=== PATIENT | female | born 1980 | race American Indian/Alaskan Native ===

== ENCOUNTER 2017-06-03 18:30 | Emergency (ER) | payer OTHER, MEDICARE ==
[2017-06-03 18:42] VITALS: BP 122/82; PULSE 90; RESP 16; TEMP 98.1; O2SAT 98
--- NOTE | 2017-06-03 19:28 | C.PDOC ---
History Of Present Illness A 36 y/o F c/o pain to the right hip and thigh s/p fall that occurred today at work. Denies head injury, lower extremity numbness, weakness, or any other complaints. Time Seen by Provider: 06/03/17 19:18 Chief Complaint (Nursing): Lower Extremity Problem/Injury History Per: Patient History/Exam Limitations: no limitations Onset/Duration Of Symptoms: Hrs Current Symptoms Are (Timing): Still Present Severity: Mild Recent travel outside of the [place]: No Additional History Per: Patient - Hip Description Of Injury: Fell Past Medical History Reviewed: Historical Data, Nursing Documentation, Vital Signs Vital Signs: Last Vital Signs Temp 98.1 F 06/03/17 18:38 Pulse 90 06/03/17 18:38 Resp 16 06/03/17 18:38 BP 122/82 06/03/17 18:38 Pulse Ox 98 06/03/17 21:24 Family History: States: Unknown Family Hx - Social History Hx Alcohol Use: No Hx Substance Use: No - Immunization History Hx Tetanus Toxoid Vaccination: No Hx Influenza Vaccination: No Hx Pneumococcal Vaccination: No Review Of Systems Except As Marked, All Systems Reviewed And Found Negative. Musculoskeletal: Positive for: Other (Pain to the right hip and thigh) Neurological: Negative for: Weakness (lower extremity), Numbness (lower extremity), Other (Head injury) Physical Exam - Physical Exam Appears: Non-toxic, No Acute Distress Skin: Warm, Dry Head: Atraumatic, Normacephalic Extremity: No Normal ROM (Limited due to pain), Tenderness (Right hip), Capillary Refill (<2secs), No Deformity, Other (Erythema to the right anterior thigh) Pulses: Left Femoral: Normal, Right Femoral: Normal Neurological/Psych: Oriented x3, Normal Speech, Normal Cognition, Normal Motor, Normal Sensation, Other (No focal deficit) ED Course And Treatment O2 Sat by Pulse Oximetry: 98 (RA) Pulse Ox Interpretation: Normal - Other Rad RT Hip X-Ray: Interpreted by Me, Viewed By Me Interpretation: no fx, or dislaocation Progress Note: Impression: A 36 y/o F c/o pain to the right hip and thigh s/p fall that occurred today. Plans: XRAY right hip, urine, Motrin, Reassess. XRAY Hip: NO acute fractures or dislocations. Patient is in no acute distress at this time and is improving with pain. Patient is without lower extremity numbness or weakness. Patient with pain whwn ambulating and was instructed in crutch walking. Pt is discharged home and advised to follow up with PMD for further evaluation and to return to the ER if symptoms worsens. Reevaluation Time: 21:17 Reassessment Condition: Improved Disposition Counseled Patient/Family Regarding: Diagnosis, Need For Followup, Rx Given - Disposition Disposition: HOME/ ROUTINE Disposition Time: 21:28 Condition: STABLE Additional Instructions: Please follow up with PMD motrin for pain Leg elevation Apply ICE to area Return to ER if worse Prescriptions: Ibuprofen [Motrin] 600 mg PO Q6H #30 tab Instructions: Hip Contusion (ED) Forms: [facility] (Uzbek), Work Excuse - Clinical Impression Clinical Impression: Contusion of thigh, right, Strain of right hip - Scribe Statement The provider has reviewed the documentation as recorded by the Yassineibjanette arguello All medical record entries made by the Yassineibjanette were at my direction and personally dictated by me. I have reviewed the chart and agree that the record accurately reflects my personal performance of the history, physical exam, medical decision making, and the department course for this patient. I have also personally directed, reviewed, and agree with the discharge instructions and disposition.
--- NOTE | 2017-06-04 08:24 | RAD ---
PROCEDURE: HISTORY: s/p fall, r/o fx COMPARISON: None TECHNIQUE: AP view of the pelvis and applicable frog leg views obtained. FINDINGS: No fracture or dislocation. Each superolateral hip joint space appears slightly narrowed. Bilateral superolateral acetabular mild spurring present. The amount of uncovering of the femoral head on the right is greater than left. Adult hip dysplasia possible. Sacroiliac joints grossly normal. Minimal pubic symphyseal osseous hypertrophy Bilateral hemipelvic phleboliths IMPRESSION: No fracture or dislocation . Bilateral hip mild acetabular spurring right greater than left. The right femoral head appears more uncovered than normal by the acetabulum. Adult hip dysplasia possible
== END 2017-06-03 21:48 | disposition home or self-care (01) ==
LOC: C.ER 18:30
DX: S76.011A Strain of muscle, fascia and tendon of right hip, initial encounter (principal); S70.11XA Contusion of right thigh, initial encounter; W19.XXXA Unspecified fall, initial encounter; Y93.89 Activity, other specified; Y92.89 Other specified places as the place of occurrence of the external cause